=== PATIENT | female | born 1940 | race Caucasian/White ===

== ENCOUNTER → 2017-11-13 | Outpatient (CLI) | payer MEDICARE, BC ==
[~2017-11-13] MED LIST: ASPERCREME76.5 GM TOP; ASPIRIN EC325 MG PO; COZAAR 25 MG TA25 M1 PO; CRESTOR10 MG PO; DEXILANT30 MG PO; LIDOCAINE VISC100 M1 MM; LOPRESSOR25 PO; PENICILLIN VK500 MG PO; PROTONIX 20 MG20 M1 PO; SYNTHROID50 MCG PO; VESICARE10 M1 PO
== END | disposition home or self-care (01) ==
LOC: M.RAD 10:43
DX: D05.11 Intraductal carcinoma in situ of right breast (principal); R92.1 Mammographic calcification found on diagnostic imaging of breast; I10 Essential (primary) hypertension; I25.10 Atherosclerotic heart disease of native coronary artery without angina pectoris; E78.00 Pure hypercholesterolemia, unspecified; M19.90 Unspecified osteoarthritis, unspecified site; K21.9 Gastro-esophageal reflux disease without esophagitis; Z90.49 Acquired absence of other specified parts of digestive tract; Z98.51 Tubal ligation status; Z98.890 Other specified postprocedural states; Z88.2 Allergy status to sulfonamides; Z88.8 Allergy status to other drugs, medicaments and biological substances; Z79.899 Other long term (current) drug therapy

== ENCOUNTER → 2017-12-09 | Day surgery (SDC) | payer MEDICARE, BC ==
[2017-12-09 09:28] LABS: URINE BILIRUBIN NEGATIVE (Negative); URINE BLOOD 3+ (Negative); URINE CLARITY CLEAR; URINE COLOR YELLOW; URINE GLUCOSE-RANDOM NEGATIVE (Negative); URINE KETONES NEGATIVE (Negative); URINE NITRITE-REFLEX NEGATIVE (Negative); URINE PROTEIN 1+ (Negative); URINE SPECIFIC GRAVITY 1.025 (1.005-1.030); URINE UROBILINOGEN 0.2 E.U./dl (0.2-1.0)
[2017-12-09 09:31] LABS: URINE LEUKOCYTES-REFLEX 3+ (Negative)
[2017-12-09 09:33] LABS: CASTS None Seen /LPF (None Seen); MUCUS None Seen strn/LPF (None Seen); SQUAMOUS 0-3 Few /LPF (0-3); URINE RBC 3-10 Few /HPF (0-2); URINE WBC-REFLEX >25 Many /HPF (0-5)
[2017-12-09 09:34] LABS: CRYSTALS None Seen /LPF (None Seen)
== END | disposition home or self-care (01) ==
LOC: M.SUR 09:00 → M.LAB 09:00 → M.SUR 09:53
PROVIDERS: Surgery
DX: D05.11 Intraductal carcinoma in situ of right breast (principal); R92.1 Mammographic calcification found on diagnostic imaging of breast; I25.10 Atherosclerotic heart disease of native coronary artery without angina pectoris; M19.90 Unspecified osteoarthritis, unspecified site; I10 Essential (primary) hypertension; E78.00 Pure hypercholesterolemia, unspecified; Z90.49 Acquired absence of other specified parts of digestive tract; Z96.651 Presence of right artificial knee joint; Z88.8 Allergy status to other drugs, medicaments and biological substances; Z98.890 Other specified postprocedural states; Z88.2 Allergy status to sulfonamides; Z79.899 Other long term (current) drug therapy; Z79.82 Long term (current) use of aspirin; Z98.51 Tubal ligation status

== ENCOUNTER → 2018-01-06 | Day surgery (SDC) | payer MEDICARE, BC ==
[2018-01-06 12:35] LABS: HEMATOCRIT 39.7 % (37.0-47.0); HEMOGLOBIN 12.8 gm/dL (12.0-15.0); MCHC 32.4 g/dL (28.0-37.0); MCV 86.6 fL (80.0-100.0); MPV 8.4 fl. (7.2-11.1); RBC 4.58 mil/uL (4.20-5.00); WBC 6.8 thou/uL (4.0-11.0)
[2018-01-06 12:53] LABS: CALCIUM 9.1 mg/dL (8.5-10.1); CREATININE 1.1 mg/dL (0.6-1.3); POTASSIUM 4.5 mmol/L (3.5-5.1)
[2018-01-06 12:58] LABS: ALBUMIN 3.3 g/dL (3.4-5.0); TOTAL BILIRUBIN 0.4 mg/dL (<0.1-1.0); TOTAL PROTEIN 7.3 g/dL (6.4-8.2)
--- NOTE | 2018-01-06 15:27 | EKG ---
[place] [address] ELECTROCARDIOGRAM REPORT Name: MINDY GARCÍA Room: [facility]#: [id number] Admission: 01/06/18 Attend Phys: Kusum Galdamez DO Discharge: Date of : 42 Report #: [id number] THIS REPORT FOR: //name// [facility] Test Date: 2018-01-06 Test Time: 12:35:47 Pat Name: MINDY GARCÍA Department: Room: Gender: F Strategy Director: : 1940 Requested By: Kusum Galdamez Order Number: [id number] Reading MD: Chang Browne Measurements Intervals Orwell Rate: 63 P: 52 SD: 142 QRS: -6 QRSD: 109 T: 34 QT: 418 QTc: 428 Interpretive Statements Sinus rhythm Borderline low voltage, extremity leads No previous ECG available for comparison Electronically Signed On 01-06-2018 15:27:07 CDT by Chang Browne [email or web address] <ELECTRONICALLY SIGNED> By: Chang Browne MD, [facility] 01/06/18 1527 1235 1235 Chang Browne MD, FACC /EPI
--- NOTE | 2018-01-10 17:53 | OP ---
[address] [address] OPERATIVE REPORT Name: RICKYMINDY El Room: [facility]#: [id number] Admission: 01/06/18 Attend Phys: Kusum Galdamez DO Discharge: Date of : 42 Report #: [id number] THIS REPORT FOR: //name// CC: Kusum Galdamez DO [facility] DICTATED BY: Gilmar Chanel DO DATE OF SERVICE: 01/06/2018 PREOPERATIVE DIAGNOSIS: Right breast ductal carcinoma in situ. POSTOPERATIVE DIAGNOSIS: Right breast ductal carcinoma in situ. SURGEON: Kusum Galdamez DO CO-SURGEON: Marino Chanel DO, PGY3 ASSISTANTS: Julito Cabral, PGY1 OPERATIONS PERFORMED: Wire guided right breast lumpectomy. ANESTHESIA TYPE: General and local. ESTIMATED BLOOD LOSS: 2 mL. SPECIMEN REMOVED: Right breast mass including wire and clip. COMPLICATIONS: None. HISTORY OF PRESENT ILLNESS: The patient is a very pleasant 77-year-old female who had an abnormal mammogram on 10/27/2017. She had followup imaging along with a biopsy on 11/13/2017. The biopsy showed the patient did in fact have a ductal carcinoma in situ of her right breast, which was ER and IN positive. She was seen in our office and it was recommended the patient have a wire-guided right breast lumpectomy. The description of the procedure was reviewed in detail with the patient during her office visit. All risks, benefits, and complications were also discussed and the patient agreed to proceed. DESCRIPTION OF PROCEDURE: After the appropriate consents were obtained, the patient was taken to the operating room, laid in supine position. She had her arms placed out on arm boards bilaterally. She had a safety strap placed across her lap and all lines placed by Anesthesia. SCDs were placed on bilateral lower extremities. The patient was then sedated and [place] [address] OPERATIVE REPORT Name: GARCÍA,MINDY Nikko Room: [facility].#: [id number] Admission: 01/06/18 Attend Phys: Kusum Galdamez DO Discharge: Date of : 42 Report #: [id number] breast was then exposed and there was care taken to not misplace the wire. There was a protective covering over the wire that was placed by Radiology. The patient was sent to Radiology prior to this procedure to have a wire placed to localize the right breast mass. The breast was then prepped and draped in a standard sterile fashion. A timeout was performed to correctly identify the patient and procedure. We carefully studied our craniocaudal x-ray that was performed after the wire was placed. It appeared that the wire was coursing just posterior to the nipple and was well past our clip that was previously placed during her breast biopsy. We decided that if we included the distal tip of the wire, we should be well outside our margins and include our clip that was previously placed. We elected to perform an infra-areolar incision. The incision was made after we injected with 0.5% Marcaine. We used a 15 blade scalpel to make our incision and then dissected down through the subcutaneous tissue using electrocautery. Any bleeding that was occurring was adequately controlled using electrocautery. We paid careful attention to ensure that we did not enter the skin to this area. We dissected down slight medially to include the distal tip of the wire. Once the tip of the wire was felt, we were able to excise the mass circumferentially. Once the mass was completely excised, it was marked with a silk suture. The superior aspect of the mass was marked using silk suture and was cut short. The lateral side was marked using a long suture. The specimen was then placed in a container and sent to Radiology for x-ray. Once the x-ray was complete and obtained, we were able to visualize that we had indeed included our clip and our wire. Once we had confirmation that we had a complete dissection, we were able to irrigate the cavity and any bleeding that was occurring was adequately controlled using electrocautery. We then closed down the defect using 3-0 Vicryl in inverted interrupted sutures in a layered fashion. The skin was closed using 4-0 Monocryl suture in a running subcuticular fashion. The skin and subcutaneous tissue was then injected using local anesthetic consisting of 0.5% Marcaine. The patient's incision was then cleaned and dried adequately and we placed Mastisol, Steri-Strips and a sterile Tegaderm OpSite on her incision site. The patient did receive perioperative antibiotics before incision was made today. The patient tolerated the procedure very well. The counts were correct x 2 at the end of the procedure. Once the procedure was complete, the patient was allowed to awaken in the operating room and had her LMA removed. She was then transferred to her cart and will be allowed to recover in the PACU. Once the patient is fully recovered, she will be allowed to be discharged home. We will send the specimen to pathology for further evaluation and we will discuss pathology results in the office during her next visit. <ELECTRONICALLY SIGNED> By: Kusum Galdamez, 01/10/18 1753 1444 [id number] Galdamez DO /rakesh
--- NOTE | 2018-02-11 14:10 | PATH ---
[address] [address] PATHOLOGY RPT PROCEDURE Name: RICKYSHARI M Room: [facility]#: [id number] Admission: 01/06/18 Date of : 42 Discharge: Report #: [id number] Path Case #: [id number] [facility] Accession Number: [id number] . 01 Material submitted: . RIGHT BREAST MASS . 01 Clinical history: . Right ductal carcinoma, right breast mass . 02 Diagnosis: Breast tissue, wire-localized right breast lumpectomy: - Ductal carcinoma in situ, high grade, solid and cribriform type with focal comedo type necrosis, and with focal lobular cancerization. - DCIS is focally present at the anterior margin. - Proliferative fibrocystic changes with focal moderate / florid ductal epithelial hyperplasia. . Surgical Pathology Cancer Case Summary . DCIS OF THE BREAST: . Procedure ___ Other (specify): Wire localized lumpectomy . Specimen Laterality ___ Right . + Tumor Site + ___ Not specified . Size (Extent) of DCIS Estimated size (extent) of DCIS (greatest dimension using gross and microscopic evaluation): at least (millimeters) 16 mm + Number of blocks with DCIS: 5 + Number of blocks examined: 18 . Histologic Type ___ Ductal carcinoma in situ . + Architectural Patterns + ___ Cribriform + ___ Solid . Nuclear Grade ___ Grade III (high) . Necrosis ___ Present, central (expansive "comedo" necrosis) [place] [address] PATHOLOGY RPT PROCEDURE Name: SHARI GARCÍA Room: [facility]#: [id number] Admission: 01/06/18 Date of : 42 Discharge: Report #: [id number] Path Case #: [id number] . Margins ___ Positive for DCIS Specify margin(s): Anterior margin + For positive margins, specify extent (focal, minimal/moderate, or extensive): + Anterior: Focal . Regional Lymph Nodes ___ No lymph nodes submitted or found . Pathologic Stage Classification (pTNM, AJCC 8th Edition) . Primary Tumor (pT) ___ pTis (DCIS):Ductal carcinoma in situ . Regional Lymph Nodes (pN) . Category (pN) ___ pNX:Regional lymph nodes cannot be assessed (eg, not removed for pathological study or previously removed) . Additional Pathologic Findings Specify: See diagnosis . Microcalcifications + ___ Present in DCIS . Clinical History The current clinical/radiologic breast findings for which this surgery is performed include: + ___ Radiologic finding + ___ Mass or architectural distortion . . (JPM:pit; 01/08/2018) QLM/01/09/2018 . 02 Comment: Sections of the right breast lumpectomy show focal ductal carcinoma in situ, high grade, solid and cribriform type with focal comedo type necrosis. There is focal lobular cancerization. There is no evidence of invasive carcinoma. DCIS focally measures up to 1.6 cm in greatest dimension on the glass slide, and is focally present in 5 of 18 tissue blocks. DCIS is focally present at the anterior margin. The remaining margins are negative for DCIS. There are focal calcifications associated [place] [address] PATHOLOGY RPT PROCEDURE Name: SHARI GARCÍA Room: [facility]#: [id number] Admission: 01/06/18 Date of : 42 Discharge: Report #: [id number] Path Case #: [id number] (JPM:mml; 01/08/2018) . 02 Electronically signed: . Laron Romero MD, Pathologist NPI- [id number] . 01 Gross description: . The specimen is received in formalin, labeled "Shari García, right breast mass, long lateral, short superior". Received is a 37 g lumpectomy specimen oriented with a short suture designating the superior margin and a long suture designating the lateral margin. The specimen measures 6.1 cm from medial to lateral, 5.7 cm from superior to inferior, and 2.8 cm from anterior to posterior. There is a localization wire present which exits through the lateral margin. The specimen is inked as follows: Superior-blue, inferior-green, lateral-red, medial-yellow, anterior-black, posterior-orange. Sectioning reveals bright yellow, lobulated cut surfaces throughout. Palpation and thorough dissection of the specimen reveals no grossly distinct previous biopsy sites, nodules or lesions. The specimen is submitted representatively as follows: . A1 most lateral margin, serially sectioned A2 most medial margin, serially sectioned A3-A18 alternating sections submitted from lateral to medial aspects. The sections in cassettes A3 through A6 are additionally bisected and sections in cassettes A7 through A18 are additionally trisected. . The cold ischemic time is 42 minutes. The total formalin fixation time is 28 hours and 28 minutes. (CAA; 01/07/2018) QAC/QAC . 02 Pathologist provided ICD-10: D05.11, N60.11, N62 . 02 CPT . [id number] Performed at: 01 [facility] [address], [place], [place] [id number] MD Jaya Glass MD Phone: [phone] Performed at: [facility] [address], [place] [id number] MD Laron Romero MD Phone: [phone]
== END | disposition home or self-care (01) ==
LOC: M.SUR 08:02
PROVIDERS: Surgery
DX: D05.11 Intraductal carcinoma in situ of right breast (principal); Z98.890 Other specified postprocedural states; Z79.899 Other long term (current) drug therapy; Z88.2 Allergy status to sulfonamides; Z88.8 Allergy status to other drugs, medicaments and biological substances; Z79.82 Long term (current) use of aspirin; Z90.49 Acquired absence of other specified parts of digestive tract; Z95.5 Presence of coronary angioplasty implant and graft

== ENCOUNTER → 2018-05-20 | Outpatient (CLI) | payer MEDICARE, BC | LOC: M.ULTRA 10:48 | DX: E04.2 Nontoxic multinodular goiter (principal); R59.9 Enlarged lymph nodes, unspecified; Z85.3 Personal history of malignant neoplasm of breast ==